=== PATIENT | female | born 1980 | race Caucasian/White ===

== ENCOUNTER → 2020-09-06 | Outpatient (CLI) | payer OTHER ==
[~2020-09-06] MED LIST: AUGMENTIN 875-1 EACH PO; BACLOFEN20 MG PO; BENTYL 20MG TAB20 MG PO; COREG 12.5MG12.5 MG PO; CYMBALTA60 MG PO; DITROPAN XL10 MG PO; DOXYCYCLINE HY100 MG PO; FERROUS GLUCON324 M1 PO; GABAPENTIN800 MG PO; HYDROCODON-ACE1 EAC6 PO; KLONOPIN0.5 MG PO; LAXATIVE SUPPOS10 MG PR; MAGNESIUM400 M2 PO; MIRALAX17 GM PO; OMNICEF 300 MG300 MG PO; PAMELOR10 MG PO; PROAIR DIGIHAL90 MCG INH; PROMETHAZINE HC25 M1 PO; SEROQUEL25 MG PO; SULFAMETHOXAZO1 EACH PO; THERAGRAN M TAB1 EA PO; VIBRAMYCIN100 MG PO; ZOFRAN4 MG PO; ZYVOX600 MG PO
== END ==
LOC: ECHO 08:56
DX: G06.2 Extradural and subdural abscess, unspecified (principal); R78.81 Bacteremia; I42.9 Cardiomyopathy, unspecified; I07.1 Rheumatic tricuspid insufficiency; I27.20 Pulmonary hypertension, unspecified
CPT/HCPCS: ECHO; 93306

== ENCOUNTER 2020-09-27 21:45 | Emergency (ER) | payer OTHER ==
[~2020-09-27 21:45] MED LIST changes: -AUGMENTIN 875-1 EACH PO; -BACLOFEN20 MG PO; -COREG 12.5MG12.5 MG PO; -CYMBALTA60 MG PO; -DITROPAN XL10 MG PO; -DOXYCYCLINE HY100 MG PO; -FERROUS GLUCON324 M1 PO; -GABAPENTIN800 MG PO; -HYDROCODON-ACE1 EAC6 PO; -KLONOPIN0.5 MG PO; -LAXATIVE SUPPOS10 MG PR; -MAGNESIUM400 M2 PO; -MIRALAX17 GM PO; -OMNICEF 300 MG300 MG PO; -PAMELOR10 MG PO; -PROAIR DIGIHAL90 MCG INH; -PROMETHAZINE HC25 M1 PO; -SEROQUEL25 MG PO; -SULFAMETHOXAZO1 EACH PO; -THERAGRAN M TAB1 EA PO; -VIBRAMYCIN100 MG PO; -ZYVOX600 MG PO
[2020-09-28 01:40] LABS: HEMOGLOBIN 10.8 gm/dl (12.3-15.3); RED BLOOD COUNT 3.88 M/UL (4.00-5.10); WHITE BLOOD COUNT 7.1 K/UL (4.5-11.0)
[2020-09-28] MEDS ORDERED: VIBRAMYCIN100 MG PO (04:41)
[2020-09-28] MEDS ORDERED: PROAIR DIGIHAL90 MCG INH (04:41)
[2020-09-28 15:11] LABS: ACINETOBACTER BAUMANNII Not Detected (Negative); CANDIDA ALBICANS Not Detected (Negative); CANDIDA KRUSEI Not Detected (Negative); CANDIDA TROPICALIS Not Detected (Negative); ENTEROCOCCUS Not Detected (Negative); ESCHERICHIA COLI Not Detected (Negative); HAEMOPHILUS INFLUENZAE Not Detected (Negative); KLEBSIELLA OXYTOCA Not Detected (Negative); KLEBSIELLA PNEUMONIAE Not Detected (Negative); KPC-CARBAPENEM-RESISTANCE GENE Not Detected (Negative); PROTEUS Not Detected (Negative); PSEUDOMONAS AERUGINOSA Not Detected (Negative); SERRATIA MARCESANS Not Detected (Negative); STREP AGALACTIAE (GROUP B) Not Detected (Negative); STREP PYOGENES (GROUP A) Not Detected (Negative); STREPTOCOCCUS Not Detected (Negative); vanA/B (VANCOMYCIN RESIST GENE Not Detected (Negative)
[2020-09-28 16:35] LABS: STAPHYLOCOCCUS DETECTED (Negative); STAPHYLOCOCCUS AUREUS DETECTED (Negative); mecA (METHICILLIN RESIST GENE DETECTED (Negative)
== END 2020-09-28 05:11 | disposition home or self-care (01) ==
LOC: ER1 21:45
PROVIDERS: Emergency Medicine
DX: J18.0 Bronchopneumonia, unspecified organism (principal); G82.20 Paraplegia, unspecified; F17.200 Nicotine dependence, unspecified, uncomplicated; Z86.19 Personal history of other infectious and parasitic diseases; Z98.890 Other specified postprocedural states; Z20.822 Contact with and (suspected) exposure to COVID-19
CPT/HCPCS: 36415; 51701; 71045; 80053; 81001; 83605; 83690; 85025; 87040; 87077; 87150; 87186; 96374; 96375; 99283; J2270; J2405; U0002

== ENCOUNTER 2020-10-07 19:18 | Inpatient (IN) | payer OTHER ==
[~2020-10-07] VITALS: Ht 170.2 cm; Wt 74.8 kg
[~2020-10-07 19:18] MED LIST changes: +PROAIR DIGIHAL90 MCG INH; +VIBRAMYCIN100 MG PO
[2020-10-07 21:34] LABS: HEMOGLOBIN 10.7 gm/dl (12.3-15.3); RED BLOOD COUNT 3.86 M/UL (4.00-5.10); WHITE BLOOD COUNT 8.3 K/UL (4.5-11.0)
[2020-10-07 21:47] LABS: BUN/CREATININE RATIO 14 (0-10)
[2020-10-08] MEDS ORDERED: DOXYCYCLINE HY100 MG PO (04:57)
[2020-10-08] MEDS ORDERED: HYDROCODON-ACE1 EAC6 PO (04:59)
[2020-10-08] MEDS ORDERED: PROMETHAZINE HC25 M1 PO (04:59)
[2020-10-08] MEDS ORDERED: BACLOFEN20 MG PO (04:59)
[2020-10-08] MEDS ORDERED: COREG 12.5MG12.5 MG PO (05:00)
[2020-10-08 07:12] LABS: HEMOGLOBIN 9.1 gm/dl (12.3-15.3); WHITE BLOOD COUNT 6.8 K/UL (4.5-11.0)
[2020-10-08 07:13] LABS: RED BLOOD COUNT 3.37 M/UL (4.00-5.10)
[2020-10-08] MEDS ORDERED: CYMBALTA60 MG PO (10:45)
[2020-10-08] MEDS ORDERED: GABAPENTIN800 MG PO (10:46)
[2020-10-08] MEDS ORDERED: KLONOPIN0.5 MG PO (10:47)
[2020-10-08] MEDS ORDERED: PAMELOR10 MG PO (10:48)
[2020-10-08] MEDS ORDERED: DITROPAN XL10 MG PO (10:49)
[2020-10-08] MEDS ORDERED: MIRALAX17 GM PO (10:50)
[2020-10-08] MEDS ORDERED: SEROQUEL25 MG PO (10:51)
[2020-10-08] MEDS ORDERED: LAXATIVE SUPPOS10 MG PR (10:52)
[2020-10-08] MEDS ORDERED: MAGNESIUM400 M2 PO (10:53)
[2020-10-08] MEDS ORDERED: SULFAMETHOXAZO1 EACH PO (11:00)
[2020-10-08 19:54] LABS: ACINETOBACTER BAUMANNII Not Detected (Negative); CANDIDA ALBICANS Not Detected (Negative); CANDIDA KRUSEI Not Detected (Negative); CANDIDA TROPICALIS Not Detected (Negative); ENTEROCOCCUS Not Detected (Negative); ESCHERICHIA COLI Not Detected (Negative); HAEMOPHILUS INFLUENZAE Not Detected (Negative); KLEBSIELLA OXYTOCA Not Detected (Negative); KLEBSIELLA PNEUMONIAE Not Detected (Negative); KPC-CARBAPENEM-RESISTANCE GENE Not Detected (Negative); PROTEUS Not Detected (Negative); PSEUDOMONAS AERUGINOSA Not Detected (Negative); SERRATIA MARCESANS Not Detected (Negative); STREP AGALACTIAE (GROUP B) Not Detected (Negative); STREP PYOGENES (GROUP A) Not Detected (Negative); STREPTOCOCCUS Not Detected (Negative); vanA/B (VANCOMYCIN RESIST GENE Not Detected (Negative)
[2020-10-08 21:33] LABS: STAPHYLOCOCCUS DETECTED (Negative); STAPHYLOCOCCUS AUREUS DETECTED (Negative); mecA (METHICILLIN RESIST GENE DETECTED (Negative)
--- NOTE | 2020-10-08 22:03 | NUR ---
NOTIFIED DR COELLO OF POSITIVE BLOOD CULTURES. RECIEVED NO NEW ORDERS. WILL CONTINUE TO MONITOR.
[2020-10-10 03:47] LABS: HEMOGLOBIN 7.8 gm/dl (12.3-15.3); RED BLOOD COUNT 2.85 M/UL (4.00-5.10); WHITE BLOOD COUNT 5.7 K/UL (4.5-11.0)
[2020-10-10 06:11] LABS: BUN/CREATININE RATIO 19 (0-10)
--- NOTE | 2020-10-10 17:44 | NUR ---
ANGELITA LAZO REVIEWED PATIENT'S EKG ORDERED AFTER EPISODE OF CHEST PAIN. NO FURTHER ACTIONS TO BE TAKEN AT THIS TIME.
[2020-10-11 03:36] LABS: HEMOGLOBIN 7.8 gm/dl (12.3-15.3); RED BLOOD COUNT 2.87 M/UL (4.00-5.10); WHITE BLOOD COUNT 5.5 K/UL (4.5-11.0)
[2020-10-11 04:09] LABS: BUN/CREATININE RATIO 15 (0-10)
[2020-10-12 05:47] LABS: BUN/CREATININE RATIO 13 (0-10)
[2020-10-13 03:42] LABS: BUN/CREATININE RATIO 10 (0-10)
[2020-10-13 05:13] LABS: HEMOGLOBIN 7.7 gm/dl (12.3-15.3); RED BLOOD COUNT 2.8 M/UL (4.00-5.10); WHITE BLOOD COUNT 4.2 K/UL (4.5-11.0)
[2020-10-17 03:55] LABS: HEMOGLOBIN 8.5 gm/dl (12.3-15.3); RED BLOOD COUNT 3.11 M/UL (4.00-5.10); WHITE BLOOD COUNT 4.7 K/UL (4.5-11.0)
[2020-10-18 04:55] LABS: HEMOGLOBIN 8.2 gm/dl (12.3-15.3); RED BLOOD COUNT 3.01 M/UL (4.00-5.10); WHITE BLOOD COUNT 4.3 K/UL (4.5-11.0)
[2020-10-19] MEDS ORDERED: FERROUS GLUCON324 M1 PO (13:49)
[2020-10-19] MEDS ORDERED: AUGMENTIN 875-1 EACH PO (13:49)
[2020-10-19] MEDS ORDERED: ZYVOX600 MG PO (13:49)
[2020-10-19] MEDS ORDERED: THERAGRAN M TAB1 EA PO (13:49)
== END 2020-10-19 17:55 | disposition home health service (06) | DRG 871 ==
LOC: ER1 19:18 → M/S 10-08 02:36 → CDU 10-08 02:36 → M/S 10-08 03:47
PROVIDERS: Family Medicine; Internal Medicine; Internal Medicine Infectious Disease; ADMIT Internal Medicine
PROC: B24BZZZ Ultrasonography of Heart with Aorta (ICD-10-PCS; principal; 2020-10-09)
PROC: B24BZZ4 Ultrasonography of Heart with Aorta, Transesophageal (ICD-10-PCS; 2020-10-11)
DX: A41.02 Sepsis due to Methicillin resistant Staphylococcus aureus (principal); J15.212 Pneumonia due to Methicillin resistant Staphylococcus aureus; I26.90 Septic pulmonary embolism without acute cor pulmonale; G82.20 Paraplegia, unspecified; N17.9 Acute kidney failure, unspecified; I76 Septic arterial embolism; R65.20 Severe sepsis without septic shock; D50.9 Iron deficiency anemia, unspecified; I10 Essential (primary) hypertension; L89.152 Pressure ulcer of sacral region, stage 2; F41.9 Anxiety disorder, unspecified; F32.9 Major depressive disorder, single episode, unspecified; F19.11 Other psychoactive substance abuse, in remission; E86.0 Dehydration; Z20.822 Contact with and (suspected) exposure to COVID-19; R21 Rash and other nonspecific skin eruption; M79.605 Pain in left leg; N31.9 Neuromuscular dysfunction of bladder, unspecified; F17.210 Nicotine dependence, cigarettes, uncomplicated; R16.1 Splenomegaly, not elsewhere classified; I07.1 Rheumatic tricuspid insufficiency; I27.20 Pulmonary hypertension, unspecified; Z95.0 Presence of cardiac pacemaker; Z82.49 Family history of ischemic heart disease and other diseases of the circulatory system; Z90.49 Acquired absence of other specified parts of digestive tract
CPT/HCPCS: ECHO; 36415; 71045; 71250; 72128; 72131; 73700; 78800; 80048; 80053; 80202; 81001; 82550; 82553; 82728; 83540; 83550; 83605; 83690; 84484; 84703; 85025; 85610; 85652; 86140; 87040; 87077; 87086; 87150; 87186; 93005; 93306; 93312; 93320; 96365; 96366; 96375; 97110-GP-CQ; 97162; 97530-GP-CQ; 99284; A9570; J0360; J1200; J1644; J1756; J1885; J2250; J2270; J2310; J2405; J2543; J3010; J3370; J7040; J7070; U0002

== ENCOUNTER 2020-11-03 12:14 | Emergency (ER) | payer OTHER ==
[~2020-11-03 12:14] MED LIST changes: +AUGMENTIN 875-1 EACH PO; +BACLOFEN20 MG PO; +COREG 12.5MG12.5 MG PO; +CYMBALTA60 MG PO; +DITROPAN XL10 MG PO; +DOXYCYCLINE HY100 MG PO; +FERROUS GLUCON324 M1 PO; +GABAPENTIN800 MG PO; +HYDROCODON-ACE1 EAC6 PO; +KLONOPIN0.5 MG PO; +LAXATIVE SUPPOS10 MG PR; +MAGNESIUM400 M2 PO; +MIRALAX17 GM PO; +PAMELOR10 MG PO; +PROMETHAZINE HC25 M1 PO; +SEROQUEL25 MG PO; +SULFAMETHOXAZO1 EACH PO; +THERAGRAN M TAB1 EA PO; +ZYVOX600 MG PO
[2020-11-03 13:44] LABS: HEMOGLOBIN 11.3 gm/dl (12.3-15.3); RED BLOOD COUNT 3.98 M/UL (4.00-5.10); WHITE BLOOD COUNT 5.7 K/UL (4.5-11.0)
[2020-11-03 14:05] LABS: BUN/CREATININE RATIO 11 (0-10)
[2020-11-03] MEDS ORDERED: OMNICEF 300 MG300 MG PO (14:29)
[2020-11-04] MEDS ORDERED: DOXYCYCLINE HY100 MG PO (15:02)
[2020-11-04] MEDS ORDERED: AUGMENTIN 875-1 EACH PO (15:02)
== END 2020-11-03 15:35 | disposition home or self-care (01) ==
LOC: ER1 12:14
PROVIDERS: Emergency Medicine
DX: N30.00 Acute cystitis without hematuria (principal); Z88.1 Allergy status to other antibiotic agents; F17.210 Nicotine dependence, cigarettes, uncomplicated
CPT/HCPCS: 71045; 80053; 81001; 83605; 83735; 84100; 85025; 85652; 86140; 87040; 87077; 87086; 87186; 96365; 99285; J0696; J7030

== ENCOUNTER 2020-11-04 10:50 | Emergency (ER) | payer OTHER ==
[~2020-11-04 10:50] MED LIST changes: +OMNICEF 300 MG300 MG PO
[2020-11-04 13:29] LABS: HEMOGLOBIN 11.1 gm/dl (12.3-15.3); RED BLOOD COUNT 3.93 M/UL (4.00-5.10)
[2020-11-04 13:47] LABS: WHITE BLOOD COUNT 3.8 K/UL (4.5-11.0)
[2020-11-04 13:59] LABS: BUN/CREATININE RATIO 10 (0-10)
[2020-11-04] MEDS ORDERED: AUGMENTIN 875-1 EACH PO (15:02)
[2020-11-04] MEDS ORDERED: DOXYCYCLINE HY100 MG PO (15:02)
== END 2020-11-04 16:22 | disposition home or self-care (01) ==
LOC: ER1 10:50
PROVIDERS: Emergency Medicine
DX: J18.9 Pneumonia, unspecified organism (principal); F17.210 Nicotine dependence, cigarettes, uncomplicated; Z88.1 Allergy status to other antibiotic agents
CPT/HCPCS: 71045; 80053; 81001; 83605; 83735; 84100; 85025; 87040; 87086; 99284; J7030; Q9967

== ENCOUNTER 2020-12-11 13:13 | Emergency (ER) | payer OTHER ==
[2020-12-11 15:28] LABS: HEMOGLOBIN 11.5 gm/dl (12.3-15.3); RED BLOOD COUNT 4.17 M/UL (4.00-5.10)
== END 2020-12-11 19:38 | disposition home or self-care (01) ==
LOC: ER1 13:13
PROVIDERS: Family Medicine
DX: R31.9 Hematuria, unspecified (principal); Z88.1 Allergy status to other antibiotic agents
CPT/HCPCS: 71045; 80053; 81001; 83605; 83735; 84100; 85025; 87040; 87086; 99284; J7030

== ENCOUNTER 2021-11-24 12:57 | Emergency (ER) | payer OTHER ==
[~2021-11-24 12:57] MED LIST changes: +ALPRAZOLAM0.5 MG PO; +ATORVASTATIN CA20 MG PO; -COREG 12.5MG12.5 MG PO; +COREG3.125 MG PO; +DOCUSATE SODIU100 MG PO; +MACROBID 100 M100 M1 PO; +MELATONIN3 MG PO; +METFORMIN HCL500 MG PO; +MIRTAZAPINE30 MG PO; +OXCARBAZEPINE600 MG PO; +PHENAZOPYRIDIN100 MG PO; +PREGABALIN50 MG PO; -SEROQUEL25 MG PO; +SEROQUEL50 MG PO; +VITAMIN D21250 MCG PO
[2021-11-24 17:02] LABS: HEMOGLOBIN 12.5 gm/dl (12.3-15.3); RED BLOOD COUNT 4.39 M/UL (4.00-5.10); WHITE BLOOD COUNT 6.3 K/UL (4.5-11.0)
[2021-11-24] MEDS ORDERED: BENTYL 10MG CAP10 MG PO (17:59)
[2021-11-24] MEDS ORDERED: ZOFRAN 4 MG TAB4 MG PO (17:59)
[2021-11-24] MEDS ORDERED: PROTONIX 40 MG40 M1 PO (17:59)
== END 2021-11-24 18:30 | disposition home or self-care (01) ==
LOC: ER1 12:57
PROVIDERS: Physician Assistant Medical
DX: K29.70 Gastritis, unspecified, without bleeding (principal); E78.5 Hyperlipidemia, unspecified; E11.9 Type 2 diabetes mellitus without complications; F17.210 Nicotine dependence, cigarettes, uncomplicated; Z88.2 Allergy status to sulfonamides; Z88.1 Allergy status to other antibiotic agents
CPT/HCPCS: 80053; 81001; 83605; 83690; 84703; 85025; 96374; 99284; J1885; Q9967

== ENCOUNTER 2021-11-30 13:31 | Inpatient (IN) | payer OTHER ==
[~2021-11-30] VITALS: Ht 170.2 cm; Wt 72.6 kg
[~2021-11-30 13:31] MED LIST changes: +BENTYL 10MG CAP10 MG PO; -DOCUSATE SODIU100 MG PO; -HYDROCODON-ACE1 EAC6 PO; +PROTONIX 40 MG40 M1 PO; +SENNOSIDES-DOC1 EACH PO; +ZOFRAN 4 MG TAB4 MG PO
[2021-11-30 15:27] LABS: HEMOGLOBIN 11.6 gm/dl (12.3-15.3); RED BLOOD COUNT 4.14 M/UL (4.00-5.10); WHITE BLOOD COUNT 5.5 K/UL (4.5-11.0)
[2021-11-30] MEDS ORDERED: GABAPENTIN800 MG PO (19:46)
[2021-12-01] MEDS ORDERED: HYDROCODON-ACE1 EAC6 PO (04:59)
[2021-12-01 06:59] LABS: HEMOGLOBIN 11.8 gm/dl (12.3-15.3); RED BLOOD COUNT 4.25 M/UL (4.00-5.10); WHITE BLOOD COUNT 5.1 K/UL (4.5-11.0)
[2021-12-01] MEDS ORDERED: PROAIR HFA8.5 GM INH (14:10)
[2021-12-01] MEDS ORDERED: METOPROLOL TART25 MG PO (14:12)
[2021-12-01] MEDS ORDERED: OZEMPIC0.25 MG/0. SQ (14:13)
[2021-12-02 06:54] LABS: HEMOGLOBIN 10.6 gm/dl (12.3-15.3)
[2021-12-02 06:58] LABS: RED BLOOD COUNT 3.82 M/UL (4.00-5.10); WHITE BLOOD COUNT 3.1 K/UL (4.5-11.0)
[2021-12-03 05:05] LABS: HEMOGLOBIN 11.1 gm/dl (12.3-15.3); RED BLOOD COUNT 4.07 M/UL (4.00-5.10)
[2021-12-03 05:08] LABS: WHITE BLOOD COUNT 5.2 K/UL (4.5-11.0)
[2021-12-03 05:14] LABS: BUN/CREATININE RATIO 19 (0-10)
[2021-12-04 06:07] LABS: BUN/CREATININE RATIO 15 (0-10)
[2021-12-06 06:12] LABS: HEMOGLOBIN 12.6 gm/dl (12.3-15.3); RED BLOOD COUNT 4.53 M/UL (4.00-5.10); WHITE BLOOD COUNT 6.8 K/UL (4.5-11.0)
[2021-12-06 06:44] LABS: BUN/CREATININE RATIO 15 (0-10)
[2021-12-06] MEDS ORDERED: BACTROBAN OINT22 GM EXT (16:17)
[2021-12-06] MEDS ORDERED: DOXYCYCLINE HY100 MG PO (16:17)
== END 2021-12-06 17:45 | disposition home or self-care (01) | DRG 981 ==
LOC: ER1 13:31 → CDU 17:37 → MED SURG 4 17:37
PROVIDERS: Internal Medicine; Orthopaedic Surgery; Physician Assistant; Physician Assistant Medical; ADMIT Internal Medicine
PROC: 0K9C0ZZ Drainage of Right Hand Muscle, Open Approach (ICD-10-PCS; principal; 2021-12-01 17:30)
DX: E11.628 Type 2 diabetes mellitus with other skin complications (principal); J18.9 Pneumonia, unspecified organism; G82.20 Paraplegia, unspecified; L02.511 Cutaneous abscess of right hand; L03.90 Cellulitis, unspecified; L03.011 Cellulitis of right finger; I10 Essential (primary) hypertension; F41.9 Anxiety disorder, unspecified; F17.210 Nicotine dependence, cigarettes, uncomplicated; N31.9 Neuromuscular dysfunction of bladder, unspecified; F32.A Depression, unspecified; Z20.822 Contact with and (suspected) exposure to COVID-19; D50.9 Iron deficiency anemia, unspecified; B95.62 Methicillin resistant Staphylococcus aureus infection as the cause of diseases classified elsewhere; Z95.0 Presence of cardiac pacemaker; Z90.49 Acquired absence of other specified parts of digestive tract; Z98.890 Other specified postprocedural states; Z88.1 Allergy status to other antibiotic agents; Z79.899 Other long term (current) drug therapy; Z82.49 Family history of ischemic heart disease and other diseases of the circulatory system; Z99.3 Dependence on wheelchair
CPT/HCPCS: 36415; 71045; 73140; 80048; 80053; 80202; 82962; 83605; 83735; 84100; 85025; 85027; 85652; 86140; 87040; 87070; 87077; 87186; 87205; 94640; 94664; 94760; 96374; 96375; 97162; 97165; 99284; J0692; J1100; J1170; J1885; J2001; J2250; J2270; J2405; J2550; J2704; J3010; J3370; J7030; J7070; J7120; U0002

== ENCOUNTER 2021-12-23 12:18 | Emergency (ER) | payer OTHER ==
[~2021-12-23 12:18] MED LIST changes: +BACTROBAN OINT22 GM EXT; +HYDROCODON-ACE1 EAC6 PO; +METOPROLOL TART25 MG PO; +OZEMPIC0.25 MG/0. SQ; +PROAIR HFA8.5 GM INH
[2021-12-23 15:33] LABS: HEMOGLOBIN 12.4 gm/dl (12.3-15.3); RED BLOOD COUNT 4.39 M/UL (4.00-5.10)
== END 2021-12-23 21:30 | disposition home or self-care (01) ==
LOC: ER1 12:18
PROVIDERS: Emergency Medicine
DX: M54.50 Low back pain, unspecified (principal); E11.9 Type 2 diabetes mellitus without complications; F17.210 Nicotine dependence, cigarettes, uncomplicated
CPT/HCPCS: 72158; 73600; 73630; 80048; 81001; 84703; 85025; 96374; 96375; 96376; 99284; A9577; J1885; J2270

== ENCOUNTER 2022-01-01 19:55 | Emergency (ER) | payer OTHER ==
[2022-01-01 21:21] LABS: HEMOGLOBIN 11.6 gm/dl (12.3-15.3); RED BLOOD COUNT 4.13 M/UL (4.00-5.10); WHITE BLOOD COUNT 8.9 K/UL (4.5-11.0)
[2022-01-01 21:44] LABS: BUN/CREATININE RATIO 28 (0-10)
== END 2022-01-02 04:58 | disposition home or self-care (01) ==
LOC: ER1 19:55
PROVIDERS: Family Medicine
DX: G82.20 Paraplegia, unspecified (principal); E87.5 Hyperkalemia; F19.20 Other psychoactive substance dependence, uncomplicated; G89.29 Other chronic pain; E11.9 Type 2 diabetes mellitus without complications; N28.9 Disorder of kidney and ureter, unspecified; I10 Essential (primary) hypertension; F17.200 Nicotine dependence, unspecified, uncomplicated; Z88.2 Allergy status to sulfonamides; Z86.59 Personal history of other mental and behavioral disorders
CPT/HCPCS: 71045; 73630; 80053; 81001; 82550; 82553; 82962; 84132; 84484; 85025; 93005; 96374; 96375; 96376; 99284

== ENCOUNTER 2022-03-15 15:55 | Emergency (ER) | payer OTHER ==
[~2022-03-15 15:55] MED LIST changes: +AMOX TR-K CLV1 EAC4 PO; +SEROQUEL100 MG PO; -SEROQUEL50 MG PO; +TRAZODONE HCL50 MG PO
[2022-03-15] MEDS ORDERED: CEFUROXIME500 MG PO (19:53)
[2022-03-15] MEDS ORDERED: BENZONATATE200 MG PO (19:53)
== END 2022-03-15 20:44 | disposition home or self-care (01) ==
LOC: ER1 15:55
PROVIDERS: Preventive Medicine Occupational Medicine
DX: J42 Unspecified chronic bronchitis (principal); F17.210 Nicotine dependence, cigarettes, uncomplicated; Z20.822 Contact with and (suspected) exposure to COVID-19
CPT/HCPCS: 0240U; 36600; 51701; 71045; 80053; 81001; 82140; 82803; 82962; 83605; 83690; 83880; 85652; 86140; 87086; 93005; 96374; 96375; 99285; C9113; J0696; J2405

== ENCOUNTER 2022-04-13 12:50 | Emergency (ER) | payer OTHER ==
[~2022-04-13 12:50] MED LIST changes: +BENZONATATE200 MG PO; +CEFUROXIME500 MG PO
[2022-04-13 14:47] LABS: RED BLOOD COUNT 4.72 M/UL (4.00-5.10); WHITE BLOOD COUNT 8.7 K/UL (4.5-11.0)
[2022-04-13 15:11] LABS: BUN/CREATININE RATIO 18 (0-10)
== END 2022-04-13 17:56 | disposition home or self-care (01) ==
LOC: ER1 12:50
PROVIDERS: Emergency Medicine
DX: A41.9 Sepsis, unspecified organism (principal); J18.9 Pneumonia, unspecified organism; Z20.822 Contact with and (suspected) exposure to COVID-19
CPT/HCPCS: 71045; 80053; 81001; 83605; 83735; 84100; 85025; 87040; 87081; 87086; 87880; 93005; 96374; 96375; 99283; J1885; J2405; U0002

== ENCOUNTER 2022-04-16 13:29 | Inpatient (IN) | payer OTHER ==
[~2022-04-16] VITALS: Ht 170.2 cm; Wt 75.3 kg
[2022-04-16 19:00] LABS: HEMOGLOBIN 12.4 gm/dl (12.3-15.3); RED BLOOD COUNT 4.51 M/UL (4.00-5.10); WHITE BLOOD COUNT 7.8 K/UL (4.5-11.0)
[2022-04-17 06:35] LABS: HEMOGLOBIN 16.6 gm/dl (12.3-15.3); RED BLOOD COUNT 6.3 M/UL (4.00-5.10); WHITE BLOOD COUNT 2.5 K/UL (4.5-11.0)
[2022-04-17 06:50] LABS: BUN/CREATININE RATIO 19 (0-10)
[2022-04-17] MEDS ORDERED: KLONOPIN TAB 00.5 MG PO (09:22)
[2022-04-17] MEDS ORDERED: OXYCODONE HCL10 MG PO (09:23)
[2022-04-17] MEDS ORDERED: JARDIANCE10 MG PO (10:39)
[2022-04-17] MEDS ORDERED: PROCTOFOAM-HC 110 G1 PR (10:40)
[2022-04-17] MEDS ORDERED: OMEPRAZOLE40 MG PO (10:42)
[2022-04-17] MEDS ORDERED: GLYDO11 ML UR (10:42)
[2022-04-17] MEDS ORDERED: CLONIDINE HCL0.1 MG PO (10:43)
[2022-04-17] MEDS ORDERED: SUMATRIPTAN SUC25 MG PO (10:43)
[2022-04-17] MEDS ORDERED: TYLENOL EXTRA500 MG PO (10:44)
[2022-04-17] MEDS ORDERED: AZITHROMYCIN250 MG PO (10:45)
[2022-04-17] MEDS ORDERED: CEFDINIR300 MG PO (10:46)
== END 2022-04-17 11:00 | disposition left against medical advice (07) | DRG 871 ==
LOC: ER1 13:29 → CDU 20:23 → MED SURG 4 20:23
PROVIDERS: Preventive Medicine Occupational Medicine; ADMIT Internal Medicine
DX: A41.9 Sepsis, unspecified organism (principal); J18.9 Pneumonia, unspecified organism; J96.21 Acute and chronic respiratory failure with hypoxia; J44.0 Chronic obstructive pulmonary disease with (acute) lower respiratory infection; G82.20 Paraplegia, unspecified; F11.20 Opioid dependence, uncomplicated; R65.20 Severe sepsis without septic shock; I10 Essential (primary) hypertension; F32.A Depression, unspecified; R26.9 Unspecified abnormalities of gait and mobility; K59.00 Constipation, unspecified; E11.40 Type 2 diabetes mellitus with diabetic neuropathy, unspecified; F17.210 Nicotine dependence, cigarettes, uncomplicated; F41.9 Anxiety disorder, unspecified; Z53.21 Procedure and treatment not carried out due to patient leaving prior to being seen by health care provider; Z88.2 Allergy status to sulfonamides; Z86.14 Personal history of Methicillin resistant Staphylococcus aureus infection; Z87.01 Personal history of pneumonia (recurrent); Z95.0 Presence of cardiac pacemaker; Z98.890 Other specified postprocedural states; Z79.4 Long term (current) use of insulin; Z82.49 Family history of ischemic heart disease and other diseases of the circulatory system
CPT/HCPCS: 36415; 36600; 71045; 80048; 80053; 81001; 82803; 82962; 83605; 83690; 85025; 85652; 86140; 87040; 87081; 94664; 94760; 96372; 96374; 96375; 99285; J0456; J1170; J1650; J2405; J2543; J2930; J7030; U0002

== ENCOUNTER 2022-05-03 10:35 | Inpatient (IN) | payer OTHER ==
[~2022-05-03] VITALS: Ht 167.6 cm; Wt 74.8 kg
[~2022-05-03 10:35] MED LIST changes: +AZITHROMYCIN250 MG PO; +CEFDINIR300 MG PO; +CLONIDINE HCL0.1 MG PO; +GLYDO11 ML UR; +JARDIANCE10 MG PO; +KLONOPIN TAB 00.5 MG PO; +OMEPRAZOLE40 MG PO; +OXYCODONE HCL10 MG PO; +PROCTOFOAM-HC 110 G1 PR; +SUMATRIPTAN SUC25 MG PO; +TYLENOL EXTRA500 MG PO
[2022-05-03 11:59] LABS: HEMOGLOBIN 11.8 gm/dl (12.3-15.3); RED BLOOD COUNT 4.4 M/UL (4.00-5.10); WHITE BLOOD COUNT 4.4 K/UL (4.5-11.0)
[2022-05-03 13:32] LABS: BUN/CREATININE RATIO 20 (0-10)
[2022-05-03] MEDS ORDERED: DITROPAN XL10 MG PO (17:42)
[2022-05-03] MEDS ORDERED: IPRAT-ALBUT 0.5-3 ML NEB (17:43)
[2022-05-03 20:16] LABS: BORDETELLA PARAPERTUSSIS Not Detected (Not Detectd); BORDETELLA PERTUSSIS Not Detected (Not Detectd); CHLAMYDIA PNEUMONIAE Not Detected (Not Detectd); CORONAVIRUS HKU1 Not Detected (Not Detectd); CORONAVIRUS NL63 Not Detected (Not Detectd); CORONAVIRUS OC43 Not Detected (Not Detectd); CORONOAVIRUS 229E Not Detected (Not Detectd); HUMAN METAPNEUMOVIRUS Not Detected (Not Detectd); HUMAN RHINOVIRUS/ENTEROVIRUS Not Detected (Not Detectd); INFLUENZA A Not Detected (Not Detectd); INFLUENZA B Not Detected (Not Detectd); MYCOPLASMA PNEUMONIAE Not Detected (Not Detectd); PARAINFLUENZA VIRUS 1 Not Detected (Not Detectd); PARAINFLUENZA VIRUS 2 Not Detected (Not Detectd); PARAINFLUENZA VIRUS 3 Not Detected (Not Detectd); PARAINFLUENZA VIRUS 4 Not Detected (Not Detectd); RESPIRATORY SYNCYTIAL VIRUS Not Detected (Not Detectd)
[2022-05-03 21:17] LABS: SARS-CoV-2 NOT DETECTED (Not Detectd)
[2022-05-04 03:32] LABS: HEMOGLOBIN 11.2 gm/dl (12.3-15.3); RED BLOOD COUNT 4.28 M/UL (4.00-5.10)
[2022-05-04 03:51] LABS: BUN/CREATININE RATIO 17 (0-10)
[2022-05-05 06:21] LABS: HEMOGLOBIN 12.4 gm/dl (12.3-15.3); RED BLOOD COUNT 4.69 M/UL (4.00-5.10); WHITE BLOOD COUNT 2.8 K/UL (4.5-11.0)
[2022-05-05 06:30] LABS: BUN/CREATININE RATIO 17 (0-10)
== END 2022-05-05 19:45 | disposition left against medical advice (07) | DRG 177 ==
LOC: ER1 10:35 → CDU 16:26 → MED SURG 4 16:26
PROVIDERS: Physician Assistant; Physician Assistant Medical; ADMIT Internal Medicine
DX: J69.0 Pneumonitis due to inhalation of food and vomit (principal); G06.2 Extradural and subdural abscess, unspecified; G82.20 Paraplegia, unspecified; F11.20 Opioid dependence, uncomplicated; D50.9 Iron deficiency anemia, unspecified; F17.210 Nicotine dependence, cigarettes, uncomplicated; F41.9 Anxiety disorder, unspecified; G89.29 Other chronic pain; F32.A Depression, unspecified; N31.9 Neuromuscular dysfunction of bladder, unspecified; Z86.14 Personal history of Methicillin resistant Staphylococcus aureus infection; Z87.01 Personal history of pneumonia (recurrent); Z95.0 Presence of cardiac pacemaker; Z90.49 Acquired absence of other specified parts of digestive tract; Z98.890 Other specified postprocedural states; Z82.49 Family history of ischemic heart disease and other diseases of the circulatory system; Z88.2 Allergy status to sulfonamides
CPT/HCPCS: 36415; 71045; 71250; 72131; 80048; 80053; 80202; 80307; 81001; 82550; 82553; 82962; 83605; 83735; 84484; 85025; 85027; 87040; 87081; 87086; 87633; 93005; 94640; 94760; 96374; 96375; 96376; 99285; G0378; J0456; J1335; J2270; J3370; J7070